=== PATIENT | female | born 1975 | race African-American/Black ===

== ENCOUNTER 2017-01-25 23:13 | Emergency (ER) | payer SELFPAY ==
[~2017-01-25] VITALS: Ht 157.5 cm; Wt 96.7 kg
[~2017-01-25 23:13] MED LIST: ALBUTEROL SULF8.5 GM IH; IMITREX25 MG PO; KEFLEX500 MG PO; LORTAB 5-325 M1 EACH PO; MOBIC15 MG PO; MOBIC7.5 MG PO; MOTRIN800 MG PO; NAPROXEN500 MG PO; PERCOCET 5/31 TABLET PO; PHENERGAN-CODE120 ML PO; REGLAN10 MG PO; VICODIN 5-3001 EACH PO
[2017-01-26 00:42] LABS: CHLORIDE 104 mEq/L (99-109); POTASSIUM 3.8 mEq/L (3.7-5.4); SODIUM 139 mEq/L (136-147)
[2017-01-26 00:44] LABS: GLUCOSE 102 mg/dL (70-99)
[2017-01-26 00:45] LABS: ANION GAP 7 MEQ/L (2-14); HEMATOCRIT 34.3 % (36.0-46.0); MCH 19.3 PG (29.0-34.0); MCV 64.1 FL (83-99); PLATELET COUNT 418 K/uL (156-360); RBC DIS.WIDTH-CV 15.6 % (11.8-14.6); RBC DIS.WIDTH-SD 35.2 % (39-53); RED BLOOD COUNT 5.35 M/uL (3.80-5.20); WHITE BLOOD COUNT 8.1 K/uL (4.1-10.2)
[2017-01-26 00:48] LABS: GFR ESTIMATE (CALCULATED) > 59 mL/min/; UREA NITROGEN (BUN) 7 mg/dL (9-23)
[2017-01-26 00:57] LABS: TROP-I INTERPRETATION NEGATIVE; TROPONIN-I < 0.01 ng/mL (0.0-0.30)
[2017-01-26 02:21] LABS: D-DIMER ELISA 1.23 mg/L FEU (< 0.57)
[2017-01-26 02:24] LABS: TOTAL BILIRUBIN 0.2 mg/dL (0.0-1.0)
[2017-01-26 02:25] LABS: ALKALINE PHOSPHATASE 69 IU/L (3-129)
[2017-01-26 02:27] LABS: DIRECT BILIRUBIN 0.1 mg/dL (0.0-0.3)
[2017-01-26 02:28] LABS: LIPASE 55 U/L (1.0-51.0)
[2017-01-26 02:56] LABS: TROP-I INTERPRETATION NEGATIVE; TROPONIN-I < 0.01 ng/mL (0.0-0.30)
[2017-01-26] MEDS ORDERED: NORCO 5/3251 TABLET PO (03:04)
[2017-01-26] MEDS ORDERED: ZANAFLEX2 MG PO (03:04)
[2017-01-26 03:46] VITALS: BP 120/85
== END 2017-01-26 03:50 | disposition home or self-care (01) ==
LOC: EME 23:13
PROVIDERS: Emergency Medicine
DX: R07.89 Other chest pain (principal); S46.912A Strain of unspecified muscle, fascia and tendon at shoulder and upper arm level, left arm, initial encounter
CPT/HCPCS: 71020; 71275; 80048; 80076; 83690; 84484; 85027; 85379; 93005; 99281; 99285; J7030

== ENCOUNTER 2017-03-29 20:49 | Emergency (ER) | payer SELFPAY ==
[~2017-03-29] VITALS: Ht 157.5 cm; Wt 97.0 kg
[~2017-03-29 20:49] MED LIST changes: +NORCO 5/3251 TABLET PO; +ZANAFLEX2 MG PO
[2017-03-29] MEDS ORDERED: MOTRIN600 MG PO (22:59)
[2017-03-29] MEDS ORDERED: FLEXERIL10 MG PO (22:59)
[2017-03-30 00:06] VITALS: BP 139/105
== END 2017-03-30 00:17 | disposition home or self-care (01) ==
LOC: EME 20:49
DX: S13.9XXA Sprain of joints and ligaments of unspecified parts of neck, initial encounter (principal); S09.90XA Unspecified injury of head, initial encounter; F07.81 Postconcussional syndrome; W20.8XXA Other cause of strike by thrown, projected or falling object, initial encounter
CPT/HCPCS: 72040; 72070; 99281; 99284

== ENCOUNTER 2018-02-11 20:25 | Emergency (ER) | payer SELFPAY ==
[~2018-02-11] VITALS: Ht 157.5 cm; Wt 99.2 kg
[~2018-02-11 20:25] MED LIST changes: +FLEXERIL10 MG PO; +MOTRIN600 MG PO
[2018-02-11 22:27] LABS: APPEARANCE CLEAR ((CLEAR)); BILIRUBIN NEGATIVE; BLOOD MODERATE; COLOR YELLOW ((YELLOW)); GLUCOSE (STRIP) NEGATIVE; KETONES NEGATIVE; LEUKOCYTES LARGE; NITRITE NEGATIVE; PROTEIN (STRIP) NEGATIVE; SPECIFIC GRAVITY 1.006 (1.000-1.030); UROBILINOGEN 0.2 MG/DL (0.2-1.0)
[2018-02-11 22:36] LABS: BACTERIA 2+ /HPF; EPITHELIAL CELLS 1+ /HPF; MUCUS NONE SEEN /LPF; RED BLOOD CELLS 0-5 /HPF (0-5); UCUL ADDED? YES; WHITE BLOOD CELLS TNTC /HPF (0-5)
[2018-02-11 22:51] LABS: HEMOGLOBIN 8.3 G/DL (11.9-15.5); MCH 18.2 PG (29.0-34.0); MCHC 30.7 G/DL (30.0-36.0); MCV 59.2 FL (83-99); PLATELET COUNT 378 K/uL (156-360); RBC DIS.WIDTH-CV 18.3 % (11.8-14.6); RBC DIS.WIDTH-SD 38.1 % (39-53); RED BLOOD COUNT 4.56 M/uL (3.80-5.20); WHITE BLOOD COUNT 11.9 K/uL (4.1-10.2)
[2018-02-11 22:56] LABS: CHLORIDE 103 mEq/L (99-109); POTASSIUM 3.4 mEq/L (3.7-5.4); SODIUM 138 mEq/L (136-147)
[2018-02-11 22:58] LABS: GLUCOSE 97 mg/dL (70-99)
[2018-02-11 23:02] LABS: CREATININE 0.8 mg/dL (0.6-1.3); GFR ESTIMATE (CALCULATED) > 59 mL/min/
[2018-02-11 23:03] LABS: UREA NITROGEN (BUN) 10 mg/dL (9-23)
[2018-02-11 23:12] LABS: ALBUMIN 3.8 g/dL (3.2-4.8)
[2018-02-11 23:15] LABS: TOTAL PROTEIN 7.8 g/dL (6.4-8.3)
[2018-02-11 23:17] LABS: TOTAL BILIRUBIN 0.5 mg/dL (0.0-1.0)
[2018-02-11 23:18] LABS: ALKALINE PHOSPHATASE 138 IU/L (3-129)
[2018-02-11 23:20] LABS: AST (GOT) 42 IU/L (2-34)
[2018-02-11 23:21] LABS: ALT (GPT) 27 IU/L (3-49); DIRECT BILIRUBIN 0.3 mg/dL (0.0-0.3)
[2018-02-11 23:27] LABS: QUANTITATIVE HCG < 4.0 MIU/ML
[2018-02-12] MEDS ORDERED: BACTRIM,SEPT1 TABLET PO (00:55)
[2018-02-12 01:18] VITALS: BP 127/80
== END 2018-02-12 01:18 | disposition home or self-care (01) ==
LOC: EME 20:25
DX: N39.0 Urinary tract infection, site not specified (principal)
CPT/HCPCS: 74176; 80048; 80076; 81003; 84702; 85027; 87077; 87086; 87186; 99281; 99283